=== PATIENT | male | born 1965 | race Caucasian/White ===

== ENCOUNTER → 2018-06-01 | Outpatient (CLI) | payer OTHER ==
[~2018-06-01] MED LIST: GLUC1CAP13 PO; MELO7.5T31 PO; MULT-658 PO; OLOP30.53 TP; OMEG-76 PO
== END | disposition home or self-care (01) ==
LOC: STAR 13:24
PROVIDERS: ATTEND Surgery
DX: Z02.9 Encounter for administrative examinations, unspecified (principal)

== ENCOUNTER 2018-06-07 12:16 | Day surgery (SDC) | payer OTHER ==
[2018-06-01 13:52] VITALS: BP 119/84
[~2018-06-07] VITALS: Ht 182.9 cm; Wt 111.9 kg
[2018-06-07] MEDS ORDERED: LACTATED RINGERS 1,000 ML IV SCH ×2 (12:38→15:41)
[2018-06-07] MEDS ORDERED: BUPIVACAINE/PF-EPI 0.5% 1:200K ONE (14:03)
[2018-06-07] MEDS ORDERED: CEFAZOLIN 1,000 MG ONE (14:29)
[2018-06-07] MEDS ORDERED: DEXAMETHASONE 4 MG/ML, 5ML ONE (14:29)
[2018-06-07] MEDS ORDERED: SUCCINYLCHOLINE 20 MG/ML, 10ML ONE (14:29)
[2018-06-07] MEDS ORDERED: PROPOFOL 10 MG/ML, 20ML ONE (14:29)
[2018-06-07] MEDS ORDERED: LIDOCAINE-MPF 2% ,5ML ONE (14:29)
[2018-06-07] MEDS ORDERED: KETAMINE 10 MG/ML, 20ML ONE (14:29)
[2018-06-07] MEDS ORDERED: GLYCOPYRROLATE 0.2MG/1ML, 5ML ONE (14:29)
[2018-06-07] MEDS ORDERED: NEOSTIGMINE 1 MG/ML, 10ML ONE (14:29)
[2018-06-07] MEDS ORDERED: ONDANSETRON 2MG/ML, 2ML ONE (14:29)
[2018-06-07] MEDS ORDERED: FENTANYL PF 100 MCG/2ML ONE ×2 (14:34→15:04)
[2018-06-07] MEDS ORDERED: MIDAZOLAM 1 MG/ML, 2ML ONE (14:34)
[2018-06-07] MEDS ORDERED: HYDROmorphone 1 MG/ML, 1ML IV PRN (16:00)
[2018-06-07] MEDS ORDERED: ONDANSETRON 2MG/ML, 2ML IVPush PRN ×2 (16:00)
[2018-06-07] MEDS ORDERED: MIDAZOLAM 1 MG/ML, 2ML IV PRN (16:00)
[2018-06-07] MEDS ORDERED: OXYcodone 5 MG/5 ML ORAL.SOL UDC PO PRN (16:00)
[2018-06-07] MEDS ORDERED: MEPERIDINE/PF 25MG/0.5ML IVPush PRN (16:00)
[2018-06-07] MEDS ORDERED: FENTANYL PF 100 MCG/2ML IV PRN (16:00)
[2018-06-07] MEDS ORDERED: morphine SULFATE 10 MG/ML, 1ML IVPush PRN (16:00)
[2018-06-07] MEDS ORDERED: LABETALOL 5MG/ML, 20ML IV PRN (16:00)
[2018-06-07] MEDS ORDERED: PROMETHAZINE 25 MG/ML, 1ML IM PRN (16:00)
[2018-06-07] MEDS ORDERED: OXYcodone 5 MG/5 ML ORAL.SOL UDC ONE (16:12)
== END 2018-06-07 18:25 | disposition home or self-care (01) ==
LOC: OUT 12:16
PROVIDERS: ATTEND Surgery
DX: K40.90 Unilateral inguinal hernia, without obstruction or gangrene, not specified as recurrent (principal); E66.9 Obesity, unspecified; Z79.899 Other long term (current) drug therapy; Z98.890 Other specified postprocedural states; Z72.89 Other problems related to lifestyle
CPT/HCPCS: 49505; C1781; J0330; J0690; J1100; J2250; J2405; J2704; J2710; J3010; J3490; J7120